=== PATIENT | male | born 1970 | race African-American/Black ===

== ENCOUNTER 2018-02-03 18:42 | Emergency (ER) | payer MEDICAID ==
[~2018-02-03] VITALS: Ht 188 cm; Wt 129.0 kg
[~2018-02-03 18:42] MED LIST: ALBU25PO2 MC; BACL-141 PO; CLIN300C11 PO; FLUT1DIS3 IH; GABA600T PO; HYDR-523 PO; MEDROL; PHEN100C12 PO
[2018-02-03 19:49] VITALS: BP 129/70
== END 2018-02-03 21:30 | disposition left against medical advice (07) ==
LOC: ER 18:42
DX: T25.021A Burn of unspecified degree of right foot, initial encounter (principal); X08.8XXA Exposure to other specified smoke, fire and flames, initial encounter; Y93.89 Activity, other specified; Y92.89 Other specified places as the place of occurrence of the external cause; Y99.8 Other external cause status; Z53.21 Procedure and treatment not carried out due to patient leaving prior to being seen by health care provider